=== PATIENT | female | born 1965 | race Caucasian/White ===

== ENCOUNTER 2020-12-17 12:29 | Emergency (ER) | payer OTHER ==
[2020-12-17 14:16] LABS: BASOPHIL 0.2 % (0-2); EOSINOPHIL 0.6 % (0-5); HCT 46.2 % (37.0-47.0); HGB 14.9 g/dl (12.5-16.0); LYMPHOCYTE 13.1 % (15-48); MCH 30.8 pg (25.0-31.0); MCHC 32.3 g/dL (32.0-36.0); MCV 95.5 fL (78.0-100.0); MONOCYTE 3.3 % (0-12); MPV 9.9 fL (6.0-9.5); NEUTROPHIL 82.4 % (41-80); NRBC 0; PLT 350 K/uL (150-400); RBC 4.84 M/uL (4.20-5.40); RDW 13.6 % (11.5-14.0); WBC 8.1 K/uL (4.0-10.5)
[2020-12-17 14:21] LABS: ALBUMIN 4.3 g/dL (3.4-5.0); BILIRUBIN - TOTAL 0.4 mg/dL (0.2-1.0); BUN/CREAT RATIO (CALC) 13.2 RATIO; CREATININE 0.91 mg/dL (0.51-0.95); GLOBULIN (CALCULATION) 3.8 g/dL; POTASSIUM 3.9 mmol/L (3.5-5.1); TOTAL PROTEIN 8.1 g/dL (6.4-8.2)
[2020-12-17 15:36] LABS: BILIRUBIN NEGATIVE (NEGATIVE); BLOOD NEGATIVE Ery/uL (NEGATIVE); CLARITY CLEAR (CLEAR); COLOR YELLOW (YELLOW); GLUCOSE (U) NORMAL (NORMAL); LEUKOCYTES 1+ Leu/uL (NEGATIVE); NITRITE NEGATIVE (NEGATIVE); PROTEIN NEGATIVE (NEGATIVE); SPECIFIC GRAVITY 1.015 (1.001-1.030); UROBILINOGEN 0.2 mg/dL (0.2-1.0)
[2020-12-17 15:45] LABS: BACTERIA TRACE
[2020-12-17] MEDS ORDERED: ZOFRAN4 M1 SL (15:53)
== END 2020-12-17 16:25 | disposition home or self-care (01) ==
LOC: FER 12:29
PROVIDERS: Nurse Practitioner Family
DX: E86.0 Dehydration (principal); R11.2 Nausea with vomiting, unspecified; F17.210 Nicotine dependence, cigarettes, uncomplicated; Z90.710 Acquired absence of both cervix and uterus; Z88.8 Allergy status to other drugs, medicaments and biological substances
CPT/HCPCS: 36415; 80053; 81001; 85025; 87088; J2405; J7030